=== PATIENT | male | born 1965 | race African-American/Black ===

== ENCOUNTER 2018-02-15 11:39 | Inpatient (IN) | payer MEDICAID ==
[~2018-02-15] VITALS: Ht 188 cm; Wt 106.6 kg
[~2018-02-15 11:39] MED LIST: LISI10TA5 PO; WARF1TAB2 PO
[2018-02-15 11:56] VITALS: BP_SYST 159
[2018-02-15] MEDS ORDERED: NACL 0.9% 1,000 ML IV ONE (12:08)
[2018-02-15] MEDS ORDERED: ASPIRIN 81 MG TAB.CHEW PO ONE (12:15)
[2018-02-15 12:30] LABS: BASOPHILS # (AUTO) 0.3 K/uL (0.0-0.2); BASOPHILS % (AUTO) 3.4 % (0.0-2.0); EOSINOPHILS % (AUTO) 0.3 % (0.0-4.0); HEMOGLOBIN 14.5 g/dL (14.0-18.0); LYMPHOCYTES # (AUTO) 1.9 K/uL (1.0-5.5); LYMPHOCYTES % (AUTO) 19.6 % (20.5-51.5); MEAN CORPUSCULAR HEMOGLOBIN 32 pg (27-31); MEAN CORPUSCULAR HGB CONC 34 % (32-36); MEAN CORPUSCULAR VOLUME 95 fL (79.0-98.0); MONOCYTES # (AUTO) 0.9 K/uL (0.0-1.0); MONOCYTES % (AUTO) 9.6 % (1.7-9.3); NEUTROPHILS # (AUTO) 6.5 K/uL (1.8-7.7); NEUTROPHILS % (AUTO) 67.1 % (40.0-70.0); PLATELET COUNT (AUTO) 201 K/uL (130-430); RED BLOOD CELL COUNT(AUTO) 4.52 MIL/uL (4.2-6.2); RED CELL DISTRIBUTION WIDTH 13.2 % (9.0-15.0); WHITE BLOOD COUNT (AUTO) 9.6 K/uL (4.8-10.8)
[2018-02-15 12:38] LABS: CALCIUM 9.5 mg/dL (8.4-11.0); CREATININE 0.98 mg/dL (0.55-1.30); POTASSIUM 4.6 mmol/L (3.5-5.1)
[2018-02-15] MEDS ORDERED: NITROGLYCERIN 1 INCH (GM) OINT. TP ONE (12:45)
[2018-02-15 12:47] LABS: ALBUMIN 3.6 g/dL (3.4-4.8); TOTAL BILIRUBIN 0.6 mg/dL (0.0-1.0)
[2018-02-15] MEDS ORDERED: LISINOPRIL 10 MG TABLET (PRINIVIL) PO ONE (13:00)
[2018-02-15] MEDS ORDERED: KETOROLAC TROMETHAMINE 30 MG VIAL IVP ONE (13:15)
[2018-02-15] MEDS ORDERED: METOPROLOL TARTRATE 25 MG TABLET PO ONE (13:30)
[2018-02-15 13:47] LABS: INR 1.3 (0.80-1.20); PROTHROMBIN TIME 13.6 SECS (9.5-12.5)
[2018-02-15 14:01] VITALS: BP_SYST 165
[2018-02-15] MEDS ORDERED: MORPHINE 4 MG/ML INJ. SYRINGE IVP PRN (14:30)
[2018-02-15] MEDS ORDERED: *LOVENOX 1MG/KG Q12H/PHARMACY XX PRN (14:30)
[2018-02-15] MEDS ORDERED: ACETAMINOPHEN 325 MG TABLET PO PRN ×2 (14:30→16:30)
[2018-02-15 15:01] VITALS: BP_SYST 151
[2018-02-15] MEDS: MORPHINE 4 MG/ML INJ. SYRINGE IVP PRN (15:01)
[2018-02-15] MEDS: ONDANSETRON HCL 4 MG/2 ML VIAL IVP PRN (15:11)
[2018-02-15] MEDS: HYDROcodone/ACETAMIN 5-325 MG TAB (NORCO/ VICODIN) PO PRN (16:56)
[2018-02-15 19:30] VITALS: BP_SYST 162
[2018-02-15] MEDS ORDERED: WARFARIN SODIUM 5 MG TABLET PO ONE (20:30)
[2018-02-15] MEDS: ENALAPRILAT DIHYDRATE 1.25 MG/ML VIAL IVP PRN (20:33)
[2018-02-15] MEDS: ENOXAPARIN SODIUM 100 MG/ML SYRINGE SUBCUT SCH (20:36)
[2018-02-15] MEDS: CARVEDILOL 6.25 MG TABLET (COREG) PO SCH (20:57)
[2018-02-15] MEDS: ZOLPIDEM TARTRATE 5 MG TABLET PO SCH (21:01)
[2018-02-15] MEDS: hydrALAZINE HCL 20 MG/ML VIAL IVP PRN (22:17)
[2018-02-16 00:15] VITALS: BP_SYST 152
[2018-02-16] MEDS: MORPHINE 4 MG/ML INJ. SYRINGE IVP PRN ×2 (00:16→18:05)
[2018-02-16] MEDS: ONDANSETRON HCL 4 MG/2 ML VIAL IVP PRN ×2 (00:19→18:04)
[2018-02-16 04:00] VITALS: BP_SYST 148
[2018-02-16 06:40] LABS: INR 1.3 (0.80-1.20); PROTHROMBIN TIME 13.4 SECS (9.5-12.5)
[2018-02-16 06:50] LABS: ALBUMIN 3.4 g/dL (3.4-4.8); CREATININE 1.07 mg/dL (0.55-1.30); POTASSIUM 4.3 mmol/L (3.5-5.1); TOTAL BILIRUBIN 0.6 mg/dL (0.0-1.0)
[2018-02-16 06:57] LABS: BASOPHILS % (AUTO) 0.3 % (0.0-2.0); EOSINOPHILS # (AUTO) 0.2 K/uL (0.0-0.4); EOSINOPHILS % (AUTO) 2.3 % (0.0-4.0); HEMOGLOBIN 14.1 g/dL (14.0-18.0); LYMPHOCYTES # (AUTO) 2.1 K/uL (1.0-5.5); LYMPHOCYTES % (AUTO) 29.3 % (20.5-51.5); MEAN CORPUSCULAR HEMOGLOBIN 32 pg (27-31); MEAN CORPUSCULAR HGB CONC 34 % (32-36); MONOCYTES # (AUTO) 0.7 K/uL (0.0-1.0); MONOCYTES % (AUTO) 9.6 % (1.7-9.3); NEUTROPHILS # (AUTO) 4.2 K/uL (1.8-7.7); NEUTROPHILS % (AUTO) 58.5 % (40.0-70.0); PLATELET COUNT (AUTO) 202 K/uL (130-430); RED BLOOD CELL COUNT(AUTO) 4.35 MIL/uL (4.2-6.2); RED CELL DISTRIBUTION WIDTH 12.8 % (9.0-15.0); WHITE BLOOD COUNT (AUTO) 7.2 K/uL (4.8-10.8)
[2018-02-16 07:05] LABS: MEAN CORPUSCULAR VOLUME 97 fL (79.0-98.0)
[2018-02-16 08:06] VITALS: BP_SYST 159
[2018-02-16] MEDS: CARVEDILOL 6.25 MG TABLET (COREG) PO SCH ×2 (08:28→20:22)
[2018-02-16] MEDS: ENOXAPARIN SODIUM 100 MG/ML SYRINGE SUBCUT SCH ×2 (08:28→20:21)
[2018-02-16] MEDS ORDERED: FUROSEMIDE 40 MG TABLET PO SCH (09:00)
[2018-02-16] MEDS ORDERED: LISINOPRIL 20 MG TABLET PO ONE (09:45)
[2018-02-16 12:48] VITALS: BP_SYST 155
[2018-02-16] MEDS: ENALAPRILAT DIHYDRATE 1.25 MG/ML VIAL IVP PRN (15:23)
[2018-02-16] MEDS: hydrALAZINE HCL 20 MG/ML VIAL IVP PRN (15:23)
[2018-02-16] MEDS: HYDROcodone/ACETAMIN 5-325 MG TAB (NORCO/ VICODIN) PO PRN (15:29)
[2018-02-16 16:55] VITALS: BP_SYST 152
[2018-02-16] MEDS ORDERED: WARFARIN SODIUM 5 MG TABLET PO SCH (18:00)
[2018-02-16 19:50] VITALS: BP_SYST 146
[2018-02-16] MEDS: ZOLPIDEM TARTRATE 5 MG TABLET PO SCH (20:22)
[2018-02-17] MEDS ORDERED: LISINOPRIL 20 MG TABLET PO SCH (09:00)
== END 2018-02-16 23:27 | disposition left against medical advice (07) | DRG 190 ==
LOC: SED 11:39 → STU 13:54
PROVIDERS: ADMIT Internal Medicine Hospice and Palliative Medicine; ATTEND Internal Medicine Hospice and Palliative Medicine
DX: I21.A1 Myocardial infarction type 2 (principal); I11.0 Hypertensive heart disease with heart failure; I50.9 Heart failure, unspecified; Z95.2 Presence of prosthetic heart valve; G47.00 Insomnia, unspecified; Z53.21 Procedure and treatment not carried out due to patient leaving prior to being seen by health care provider; Z79.01 Long term (current) use of anticoagulants
CPT/HCPCS: 36415; 71045; 80053; 83880; 84484; 85025; 85379; 85610-TC; 85730-TC; 87081; 93005; 96361; 96374; 99285; J0360; J1650; J1885; J2270; J2405; J7030